=== PATIENT | female | born 1960 | race Caucasian/White ===

== ENCOUNTER 2020-05-23 16:49 | Observation (INO) | payer SELFPAY ==
[2020-05-23] VITALS (7 sets, daily range): BP systolic 134–190; BP diastolic 92–106; PULSE 89–106; RESP 14–22; TEMP 37.1–37.6; O2SAT 95–98; BMI 30.2
--- NOTE | 2020-05-23 17:11 | CTR_ITS ---
PROCEDURE INFORMATION: Exam: CT Angiography Head With Contrast Exam date and time: 05/23/2020 5:28 PM Age: 59 years old Clinical indication: Visual disturbance; Type not specified; Patient HX: PT states she woke up this am with vision changes; Additional info: Wake up stroke TECHNIQUE: Imaging protocol: Computed tomography angiography of the head with intravenous contrast. 3D rendering: MIP and/or 3D reconstructed images were created by the technologist. Radiation optimization: All CT scans at this facility use at least one of these dose optimization techniques: automated exposure control; mA and/or kV adjustment per patient size (includes targeted exams where dose is matched to clinical indication); or iterative reconstruction. Contrast material: OMNIPAQUE 350; Contrast volume: 95 ml; Contrast route: INTRAVENOUS (IV); COMPARISON: CT head wo con* [id number] 05/23/2020 5:28 PM RADIATION DOSE METRICS: Total DLP (mGy-cm): 2334.28 FINDINGS: Anterior cerebral arteries: No occlusion or significant stenosis. No aneurysm. Right internal carotid artery: Intracranial segment is patent with no significant stenosis or occlusion. No aneurysm. Right middle cerebral artery: No occlusion or significant stenosis. No aneurysm. Right posterior cerebral artery: No occlusion or significant stenosis. No aneurysm. Right vertebral artery: No occlusion or significant stenosis. No aneurysm. Left internal carotid artery: Intracranial segment is patent with no significant stenosis or occlusion. No aneurysm. Left middle cerebral artery: No occlusion or significant stenosis. No aneurysm. Left posterior cerebral artery: No occlusion or significant stenosis. No aneurysm. Left vertebral artery: No occlusion or significant stenosis. No aneurysm. Basilar artery: No occlusion or significant stenosis. No aneurysm. HEAD: Sinuses: Evidence of mild chronic right maxillary sinusitis. IMPRESSION: No large vessel stenosis or occlusion. PROCEDURE INFORMATION: Exam: CT Angiography Neck With Contrast Exam date and time: 05/23/2020 5:28 PM Age: 59 years old Clinical indication: Visual disturbance; Type not specified; Patient HX: PT states she woke up this am with vision changes; Additional info: Wake up stroke TECHNIQUE: Imaging protocol: Computed tomography angiography of the neck with intravenous contrast. 3D rendering: MIP and/or 3D reconstructed images were created by the technologist. Radiation optimization: All CT scans at this facility use at least one of these dose optimization techniques: automated exposure control; mA and/or kV adjustment per patient size (includes targeted exams where dose is matched to clinical indication); or iterative reconstruction. Contrast material: OMNIPAQUE 350; Contrast volume: 95 ml; Contrast route: INTRAVENOUS (IV); COMPARISON: CT head wo con* [id number] 05/23/2020 5:28 PM RADIATION DOSE METRICS: Total DLP (mGy-cm): 857 FINDINGS: Right common carotid artery: No stenosis. No dissection or occlusion. Right internal carotid artery: No stenosis of the extracranial segment. No dissection or occlusion. Right external carotid artery: No occlusion or stenosis of the origin. Right vertebral artery: No stenosis. No dissection or occlusion. Left common carotid artery: No stenosis. No dissection or occlusion. Left internal carotid artery: No stenosis of the extracranial segment. No dissection or occlusion. Left external carotid artery: No occlusion or stenosis of the origin. Left vertebral artery: No stenosis. No dissection or occlusion. Bones/joints: No acute fracture. Degenerative disease and degenerative disc disease C5/C6 and C6/C7 and to a less significant degree C3/C4. Soft tissues: Normal. No significant soft tissue swelling. CT/CT angio headneck* [id number] IMPRESSION: No stenosis or occlusion. REFERENCES: NASCET CRITERIA. The degree of internal carotid artery stenosis is based on NASCET criteria. Normal is no stenosis. Mild is less than 50% stenosis. Moderate is 50-69% stenosis. Severe is 70% to 99% stenosis. Total occlusion is no detectable patent lumen. Radiation Dose CTDIVOL = (mGy): DLP = 2334.28~857 (mGy-cm)
--- NOTE | 2020-05-23 17:11 | XRR_ITS ---
PROCEDURE INFORMATION: Exam: XR Chest, 1 View Exam date and time: 05/23/2020 5:27 PM Age: 59 years old Clinical indication: Other: CVA TECHNIQUE: Imaging protocol: XR of the chest Views: 1 view. COMPARISON: No relevant prior studies available. FINDINGS: Lungs: Unremarkable. No consolidation. Pleural space: Unremarkable. No pleural effusion. No pneumothorax. Heart/Mediastinum: Unremarkable. No cardiomegaly. Bones/joints: Unremarkable. Calcific tendinosis right shoulder. XR/XR chest 1V portable [id number] IMPRESSION: No acute findings.
--- NOTE | 2020-05-23 17:12 | ECG_ITS ---
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 Measurements Intervals [place] Rate: 76 P: 61 KS: 144 QRS: 30 QRSD: 92 T: 49 QT: 360 QTc: 405 Interpretive Statements SINUS RHYTHM WITH SINUS ARRHYTHMIA No previous ECG available for comparison Electronically Signed On 05-24-2020 16:25:36 CDT by Nima Tolentino M.D. [id number]
--- NOTE | 2020-05-23 17:12 | CTR_ITS ---
PROCEDURE INFORMATION: Exam: CT Head Without Contrast Exam date and time: 05/23/2020 5:28 PM Age: 59 years old Clinical indication: Visual disturbance; Patient HX: PT states she woke up this am with vision changes; Additional info: Symptoms of acute stroke TECHNIQUE: Imaging protocol: Computed tomography of the head without contrast. Radiation optimization: All CT scans at this facility use at least one of these dose optimization techniques: automated exposure control; mA and/or kV adjustment per patient size (includes targeted exams where dose is matched to clinical indication); or iterative reconstruction. COMPARISON: No relevant prior studies available. RADIATION DOSE METRICS: Total DLP (mGy-cm): 711.05 FINDINGS: Brain: Small focus of parafalcine hypoattenuation posterior left parietal lobe with focal atrophic changes. Potential side of an old lacunar insult. No visible acute intracranial pathologic process or hemorrhage. No visible evidence of acute or subacute infarction/ischemic event. Ventricles: Normal. No ventriculomegaly. Bones/joints: Unremarkable. No acute fracture. Sinuses: Evidence of mild chronic right maxillary sinusitis. Mastoid air cells: Visualized mastoid air cells are well aerated. Soft tissues: Unremarkable. CT/CT head wo con* [id number] IMPRESSION: 1. No visible evidence of acute intracranial pathologic process or hemorrhage. 2. Small focus of parafalcine hypoattenuation posterior left parietal lobe with focal atrophic changes. Potential side of an old lacunar insult. Radiation Dose CTDIVOL = (mGy): DLP = 711.05 (mGy-cm)
--- NOTE | 2020-05-23 17:17 | ED_ITS ---
HPI - Headache General: Chief Complaint: Headache Stated Complaint: HEADACHE Time Seen by Provider: 05/23/20 17:12 Source: patient Mode of arrival: ambulatory Limitations: no limitations History of Present Illness: HPI Narrative: Gardenia is a 59-year-old female comes in to the emergency department complaining of headache and having no vision. She states she went to bed last night in her normal state of health about 11 PM. Upon awakening and 7 AM she has been unable to see and she has a headache. Her headache has been getting gradually better as the day went on but her inability to see has persisted. She states that outside she can make out shadows and faint images but other than that she cannot make out anything. When she closes one eye at a time it does not change her symptoms. She denies having anything similar to this in the past. She is unaware of anything that makes her symptoms better or worse. Patient denies any other symptoms such as lateralizing weakn ess or difficulty speaking. Stroke alert has been called from triage. The patient is a wake-up stroke but is still a candidate for intervention if necessary. Associated symptoms: Deny chest pain, confusion, diaphoresis, fever(s), lightheadedness, malaise, nausea, pre-syncope, rash, syncope or vomiting Review of Systems Const: Denies: fever(s), chills, body aches, fatigue, malaise or diaphoresis Eyes: Reports: change in vision (See HPI); Denies: photophobia, eye discharge or eye redness ENMT: Denies: throat pain, odynophagia, hoarseness, swelling of lips/tongue, oral sores, ear or mastoid pain, ear discharge, change in hearing or nasal discharge Card: Denies: chest pain, palpitations, irregular heart rhythm, edema, lightheadedness, syncope, pre-syncope, dyspnea on exertion or orthopnea Resp: Denies: dyspnea, productive cough, non-productive cough, wheezing, hemoptysis or chest congestion GI: Denies: abdominal pain, nausea, vomiting, hematemesis, coffee ground emesis, heartburn, diarrhea, constipation, GI cramping, hematochezia or melena : Denies: flank pain, dysuria, urinary frequency, urinary urgency or hematuria Musc: Denies: neck pain, back pain, extremity pain, extremity swelling, joint pain, joint swelling, joint redness, joint warmth or joint stiffness Skin/Breast: Denies: rash, pruritus, erythema, skin tenderness or jaundice Neuro: Denies: headache(s), numbness in extremities, weakness in extremities, sensory changes, lack of coordination, difficulty walking, dizziness, vertigo, confusion, Slurred speech present or seizure-like activity Nick/Lymph: Denies: easy bruising, easy bleeding, petechiae, purpura or enlarged lymph nodes All/Imm: Denies: urticaria, throat swelling, tongue swelling, facial swelling or acute wheezing PFSH ED PFSH: Medical History No pertinent past medical history Surgical History S/P laparotomy Physical Exam Const: COMMON NORMALS: no acute distress, patient oriented x3, no limitations, healthy appearing and well nourished GENERAL APPEARANCE: cooperative, well kempt and well developed HENMT: COMMON NORMALS: normocephalic, atraumatic, external ears normal, EAC's normal and Normal external nose present HEAD & SCALP: normal to inspection, normocephalic and atraumatic FACE & SINUS: normal facial exam and face symmetric NOSE: Normal external nose present and Normal nares present EXTERNAL EAR: Yes external ears normal EXTERNAL AUDITORY CANAL: EAC's normal MOUTH: Normal oral and palatal mucosa present, lip normal and tongue normal Neck/C-Spine: COMMON NORMALS: full ROM, no lymphadenopathy, supple, no meningeal signs and no JVD GENERAL: Yes normal visual inspection and Yes trachea midline Chest: COMMONS NORMALS: normal inspection of the chest and normal palpation of entire chest wall Resp: COMMON NORMALS: normal respiratory effort, No retractions and No use of accessory muscles EFFORT & INSPECTION: Yes able to speak in complete sentences and Yes symmetric chest movement AUSCULTATION: no crackles, no rales, no rhonchi and no wheezes Cardio: COMMON NORMALS: no JVD, regular rate, regular rhythm, S1 normal heart sound present and S2 normal heart sound present RATE: regular rate RHYTHM: regular rhythm HEART SOUNDS: S1 normal heart sound present, S2 normal heart sound present, no click, no gallops, no murmurs, no rubs and abnormal split S2 GI: COMMON NORMALS: Soft to palpation and No hepatosplenomegaly present PALPATION: Yes Soft to palpation, No Tenderness to palpation present (GI), No Guarding due to palpation present (GI), No Rigid due to palpation, Yes No hepatosplenomegaly present, No Hernia present, No Palpable mass present and No Pulsatile mass present : COMMON NORMALS: Yes no CVA tenderness BLADDER/KIDNEY EXAM: Yes no CVA tenderness EXTERNAL FEMALE EXAM: No Hernia present Back/Pelvis: COMMON NORMALS: no CVA tenderness, thoracic and lumbar spine normal to inspection, no thoracic nor lumbar tenderness and thoraco-lumbar ROM normal Extremity: COMMON NORMALS: normal to inspection, full ROM, capillary refill normal, no joint enlargement, no clubbing, cyanosis or edema and no calf tenderness Neuro: COMMON NORMALS: patient oriented x3 MENINGEAL SIGNS: Yes no meningeal signs Psych: APPEARANCE: Yes well kempt Skin: COMMON NORMALS: no rashes or lesions noted, turgor normal, no jaundice, no petechiae and no mottling GENERAL SKIN EXAM: no rashes or lesions noted and turgor normal Course ED course: 1714 -stroke alert was called and Dr. Amaral called and discussed the case with me. She agrees the patient is not a TPA candidate as she went to bed last night at 11 PM and woke up with her symptoms at 7 AM. She recommends a CTA why the patient is in CAT scan to look for any intervening bone lesion. Patient agrees with this denies any history of kidney disease. 1829 -the case, CT results and NIH stroke scale were reviewed with Dr. Amaral. She believes the patient's NIH stroke scale is likely 0. The patient is not an interventional candidate, she agrees admit the patient for MRI, sed rate testing Vital Signs: Vital signs: Vital Signs Temperature 98.7 F 05/23/20 17:03 Pulse Rate 90 05/23/20 18:03 Respiratory Rate 18 05/23/20 18:03 Blood Pressure 188/102 05/23/20 18:03 Pulse Oximetry 96 05/23/20 18:03 MDM - Headache MDM Narrative: Medical decision making narrative: Patient still states she can only make out light and dark motions and shapes. She seems indifferent to her vision loss. The Reglan and Benadryl that I have given her she states this made her headache worse. She has no fever, no neck pain or stiffness. I have reviewed the case in full again with Dr. Amaral who recommends admission for MRI and sed rate and CRP testing. I will place this and I have reviewed the case in full with Dr. Marti, he agrees to admit for further evaluation and care. Lab Data: Attestation: I reviewed the patient's lab results. Labs: Lab Results 05/23/20 05/23/20 05/23/20 Range/Units 17:15 17:20 17:20 WBC 14.9 H (4.0-10.0) 10^3/ uL RBC 5.60 H (4.1-5.3) 10^6/u L Hgb 16.5 H (11.5-15.3) g/dL Hct 49.5 H (37.0-47.0) % MCV 88.4 (81-99) fL MCH 29.5 (28.0-34.0) pg MCHC 33.3 (30.0-36.0) g/dL RDW 12.5 (12.1-15.1) % Plt Count 331 (130-400) 10^3/c mm MPV 10.6 H (7.4-10.4) fL Neut % (Auto) 78.8 % Lymph % (Auto) 14.0 % Charles % (Auto) 6.1 % Eos % (Auto) 0.1 % Baso % (Auto) 0.7 % Neut # (Auto) 11.77 H (1.8-7.7) 10^3/u L Lymph # (Auto) 2.1 (0.8-4.8) 10^3/u L Charles # (Auto) 0.9 (0.2-0.9) 10^3/u L Eos # (Auto) 0.0 (0.0-0.8) 10^3/u L Baso # (Auto) 0.1 (0.0-0.1) 10^3/u L Nucleated RBC % (a uto) 0 % Nucleated RBCs # 0.0 /100WBC ESR (0-15) mm/hr PT 12.80 (10.5-13.3) SECO NDS INR 0.93 (0.8-1.2) APTT 31.8 (23.9-36.7) SECO NDS Sodium (136-145) mmol/L Potassium (3.5-5.1) mmol/L Chloride (98-107) mmol/L Carbon Dioxide (22-29) mmol/L Anion Gap (5-19) BUN (6-20) mg/dL Creatinine (0.5-0.9) mg/dL GFR Calculation (90-130) mL/min Glucose (65-115) mg/dL POC Glucose 132 (70-110) mg/dL Calculated Osmolal ity (285-295) mOsm/k g Calcium (8.5-10.5) mg/dL Total Bilirubin (0.15-1.2) mg/dL AST (0-32) U/L ALT (0-33) U/L Alkaline Phosphata se (35-105) IU/L C-Reactive Protein (0.0-4.9) mg/L Total Protein (6.6-8.7) g/dL Albumin (3.5-5.2) g/dL Globulin (1.3-4.6) g/dL 05/23/20 05/23/20 05/23/20 Range/Units 17:20 17:20 17:20 WBC (4.0-10.0) 10^3/ uL RBC (4.1-5.3) 10^6/u L Hgb (11.5-15.3) g/dL Hct (37.0-47.0) % MCV (81-99) fL MCH (28.0-34.0) pg MCHC (30.0-36.0) g/dL RDW (12.1-15.1) % Plt Count (130-400) 10^3/c mm MPV (7.4-10.4) fL Neut % (Auto) % Lymph % (Auto) % Charles % (Auto) % Eos % (Auto) % Baso % (Auto) % Neut # (Auto) (1.8-7.7) 10^3/u L Lymph # (Auto) (0.8-4.8) 10^3/u L Charles # (Auto) (0.2-0.9) 10^3/u L Eos # (Auto) (0.0-0.8) 10^3/u L Baso # (Auto) (0.0-0.1) 10^3/u L Nucleated RBC % (a uto) % Nucleated RBCs # /100WBC ESR 27 H (0-15) mm/hr PT (10.5-13.3) SECO NDS INR (0.8-1.2) APTT (23.9-36.7) SECO NDS Sodium 141 (136-145) mmol/L Potassium 3.1 L (3.5-5.1) mmol/L Chloride 101 (98-107) mmol/L Carbon Dioxide 23 (22-29) mmol/L Anion Gap 20.1 H (5-19) BUN 15 (6-20) mg/dL Creatinine 0.9 (0.5-0.9) mg/dL GFR Calculation 64.5 L (90-130) mL/min Glucose 139 H (65-115) mg/dL POC Glucose (70-110) mg/dL Calculated Osmolal ity 291 (285-295) mOsm/k g Calcium 9.5 (8.5-10.5) mg/dL Total Bilirubin 0.4 (0.15-1.2) mg/dL AST 17 (0-32) U/L ALT 23 (0-33) U/L Alkaline Phosphata se 142 H (35-105) IU/L C-Reactive Protein 7.9 H (0.0-4.9) mg/L Total Protein 9.1 H (6.6-8.7) g/dL Albumin 4.8 (3.5-5.2) g/dL Globulin 4.3 (1.3-4.6) g/dL Imaging Data^: CXR: My impression: No acute cardiopulmonary findings. CTA Head and Neck: Radiologist's impression: [place] [address] CT Scan Report Signed Patient: Kelli Irving Unit #: [id number] : 1960 Age/Sex: 59 / F ADM Date: 05/23/20 Loc: ER Room/Bed: Attending Dr: Ordering Provider/Ordering MD: Eloy Zaidi DO Date of Service: 05/23/20 Procedure(s): CT angio headneck* [id number] Accession Number(s): [id number] Report Number: [id number] PROCEDURE INFORMATION: Exam: CT Angiography Head With Contrast Exam date and time: 05/23/2020 5:28 PM Age: 59 years old Clinical indication: Visual disturbance; Type not specified; Patient HX: PT states she woke up this am with vision changes; Additional info: Wake up stroke TECHNIQUE: Imaging protocol: Computed tomography angiography of the head with intravenous contrast. 3D rendering: MIP and/or 3D reconstructed images were created by the technologist. Radiation optimization: All CT scans at this facility use at least one of these dose optimization techniques: automated exposure control; mA and/or kV adjustment per patient size (includes targeted exams where dose is matched to clinical indication); or iterative reconstruction. Contrast material: OMNIPAQUE 350; Contrast volume: 95 ml; Contrast route: INTRAVENOUS (IV); COMPARISON: CT head wo con* [id number] 05/23/2020 5:28 PM RADIATION DOSE METRICS: Total DLP (mGy-cm): 2334.28 FINDINGS: Anterior cerebral arteries: No occlusion or significant stenosis. No aneurysm. Right internal carotid artery: Intracranial segment is patent with no significant stenosis or occlusion. No aneurysm. Right middle cerebral artery: No occlusion or significant stenosis. No aneurysm. Right posterior cerebral artery: No occlusion or significant stenosis. No aneurysm. Right vertebral artery: No occlusion or significant stenosis. No aneurysm. Left internal carotid artery: Intracranial segment is patent with no significant stenosis or occlusion. No aneurysm. Left middle cerebral artery: No occlusion or significant stenosis. No aneurysm. Left posterior cerebral artery: No occlusion or significant stenosis. No aneurysm. Left vertebral artery: No occlusion or significant stenosis. No aneurysm. Basilar artery: No occlusion or significant stenosis. No aneurysm. HEAD: Sinuses: Evidence of mild chronic right maxillary sinusitis. IMPRESSION: No large vessel stenosis or occlusion. PROCEDURE INFORMATION: Exam: CT Angiography Neck With Contrast Exam date and time: 05/23/2020 5:28 PM Age: 59 years old Clinical indication: Visual disturbance; Type not specified; Patient HX: PT states she woke up this am with vision changes; Additional info: Wake up stroke TECHNIQUE: Imaging protocol: Computed tomography angiography of the neck with intravenous contrast. 3D rendering: MIP and/or 3D reconstructed images were created by the technologist. Radiation optimization: All CT scans at this facility use at least one of these dose optimization techniques: automated exposure control; mA and/or kV adjustment per patient size (includes targeted exams where dose is matched to clinical indication); or iterative reconstruction. Contrast material: OMNIPAQUE 350; Contrast volume: 95 ml; Contrast route: INTRAVENOUS (IV); COMPARISON: CT head wo con* [id number] 05/23/2020 5:28 PM RADIATION DOSE METRICS: Total DLP (mGy-cm): 857 FINDINGS: Right common carotid artery: No stenosis. No dissection or occlusion. Right internal carotid artery: No stenosis of the extracranial segment. No dissection or occlusion. Right external carotid artery: No occlusion or stenosis of the origin. Right vertebral artery: No stenosis. No dissection or occlusion. Left common carotid artery: No stenosis. No dissection or occlusion. Left internal carotid artery: No stenosis of the extracranial segment. No dissection or occlusion. Left external carotid artery: No occlusion or stenosis of the origin. Left vertebral artery: No stenosis. No dissection or occlusion. Bones/joints: No acute fracture. Degenerative disease and degenerative disc disease C5/C6 and C6/C7 and to a less significant degree C3/C4. Soft tissues: Normal. No significant soft tissue swelling. CT/CT angio headneck* [id number] IMPRESSION: No stenosis or occlusion. REFERENCES: NASCET CRITERIA. The degree of internal carotid artery stenosis is based on NASCET criteria. Normal is no stenosis. Mild is less than 50% stenosis. Moderate is 50-69% stenosis. Severe is 70% to 99% stenosis. Total occlusion is no detectable patent lumen. Radiation Dose CTDIVOL = (mGy): DLP = 2334.28 857 (mGy-cm) Dictated By: Lowell Mendoza Signed By: Lowell Mendoza Signed Date/Time: 05/23/201804 DD/ 03 EKG Data^: EKG 1: Attestation: I personally reviewed and interpreted this EKG as follows: EKG interpretation date: 05/23/20 EKG interpretation time: 17:57 Interpretation: Normal sinus rhythm at 76 beats a minute, nonspecific ST and T wave changes. No blocks, normal intervals. 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
[2020-05-23 17:20] LABS: Glucose Point of Care 132 mg/dL (70-110)
[2020-05-23 17:31] LABS: Basophils # 0.1 10^3/uL (0.0-0.1); Basophils % 0.7 %; Eosinophils % 0.1 %; Hematocrit 49.5 % (37.0-47.0); Hemoglobin 16.5 g/dL (11.5-15.3); Lymphocytes # 2.1 10^3/uL (0.8-4.8); Mean Corpuscular HGB Conc 33.3 g/dL (30.0-36.0); Mean Corpuscular Hemoglobin 29.5 pg (28.0-34.0); Mean Corpuscular Volume 88.4 fL (81-99); Mean Platelet Volume 10.6 fL (7.4-10.4); Monocytes # 0.9 10^3/uL (0.2-0.9); Monocytes % 6.1 %; Neutrophils # 11.77 10^3/uL (1.8-7.7); Neutrophils % 78.8 %; Nucleated Red Blood Cells % 0 %; Platelet Count 331 10^3/cmm (130-400); Red Cell Distribution Width 12.5 % (12.1-15.1); White Blood Count 14.9 10^3/uL (4.0-10.0)
[2020-05-23] MEDS: iohexol 350 mg/mL 100 mL Btl IV (17:41)
[2020-05-23 17:43] LABS: INR 0.93 (0.8-1.2)
[2020-05-23 17:44] LABS: Partial Thromboplastin Time 31.8 SECONDS (23.9-36.7)
[2020-05-23 18:09] LABS: Alanine Aminotransferase 23 U/L (0-33); Albumin Level 4.8 g/dL (3.5-5.2); Alkaline Phosphatase 142 IU/L (35-105); Anion Gap 20.1 (5-19); Aspartate Amino Transferase 17 U/L (0-32); Blood Urea Nitrogen 15 mg/dL (6-20); Calcium 9.5 mg/dL (8.5-10.5); Carbon Dioxide 23 mmol/L (22-29); Chloride 101 mmol/L (98-107); Globulin 4.3 g/dL (1.3-4.6); Glomerular Filtration Rate 64.5 mL/min (90-130); Glucose 139 mg/dL (65-115); Osmolality Calculated 291 mOsm/kg (285-295); Potassium 3.1 mmol/L (3.5-5.1); Sodium 141 mmol/L (136-145); Total Bilirubin 0.4 mg/dL (0.15-1.2); Total Protein 9.1 g/dL (6.6-8.7)
[2020-05-23 18:48] LABS: C Reactive Protein 7.9 mg/L (0.0-4.9)
[2020-05-23] MEDS: aspirin 325 mg Tablet PO (19:00)
[2020-05-23] MEDS: diphenhydrAMINE 50 mg/mL SDV 1mL 25 MG IVP (19:00)
[2020-05-23] MEDS: metoclopramide 5 mg/mL SDV 2 mL 10 MG IVP (19:00)
[2020-05-23 19:30] LABS: Erythrocyte Sedimentation Rate 27 mm/hr (0-15)
--- NOTE | 2020-05-23 19:32 | PM.HP ---
Providers/Chief Complaint Chief Complaint: HEADACHE History of Present Illness Kelli Irving is a 59 year old female who does not carry significant past medical history came in today for headache and vision change. 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 She was in her usual state of health until this morning when she started experiencing throbbing headache around 7 AM which woke her up from her sleep, she has never experienced this kind of headache before, she described this headache as throbbing in nature and frontal part of her head without any nausea, vomiting, runny nose or rhinorrhea. This headache was getting worse on coughing, she is endorsing night sweats and weight loss. She is attributing her weight loss to not eating well. She is attributing her night sweats to her postmenopausal state. She has not noticed any muscle aches, myalgias, or difficulty in combing her hair or climbing stairs. She is totally independent and has been taking care of her for last 7 years. Her headache was associated with vision change which she is describing as everything is blurry . She did not notice any black curtain falling in her visual field, denies redness of her eyes, seeing flashes/floaters, photophobia, phonophobia, previous history of glaucoma or cataracts. Her symptoms persisted until 3 PM when her daughter insisted her to go to the hospital for further evaluation. Patient is denying screening colonoscopy, mammograms, regular follow-up with PCP. Diagnosis in the ER revealed hypertension systolic blood pressure 188, diastolic 102 NIH score [address] Cristin Amaral requested CTA head and neck EKG was sinus rhythm Patient was given potassium supplementation, Reglan, high-dose aspirin At the time of my evaluation NIH 3 for bilateral limited vision without motor deficit or facial asymmetry Patient is not wearing her eyeglasses No cerebellar signs, no pupillary deficit/asymmetry No temporal tenderness Patient is not a TPA candidate because of her delayed presentation to the hospital, no occlusion found on CTA head and neck Review of Systems Const: Reports: change in weight; Denies: fever(s), chills, body aches or fatigue Eyes: Reports: change in vision and blurry vision; Denies: blind spots, photophobia, eye discharge, eye redness, dry eyes or seeing flashes ENMT: Denies: throat pain Card: Denies: chest pain Resp: Denies: dyspnea GI: Denies: abdominal pain, nausea or vomiting : Denies: flank pain, difficulty voiding or urinary frequency Musc: Denies: neck pain Skin/Breast: Denies: rash Neuro: Denies: headache(s), frequent falls, vertigo, confusion or Slurred speech present Psych: Denies: depression or visual hallucinations Endo: Denies: polyuria Nick/Lymph: Denies: easy bruising All/Imm: Denies: urticaria Medications/Allergies Home Medications Medication Instructions Recorded Confirmed Last Taken Type Golo Caps 4 cap PO DAILY 05/23/20 05/23/20 05/21/20 History ibuprofen 400 mg PO PRN 05/23/20 05/23/20 05/23/20 History Allergies Allergy/AdvReac Type Severity Reaction Status Date / Time No Known Allergies Allergy Verified 05/23/20 17:56 PFSH Acute PFSH: Medical History (Updated 05/23/20 @ 20:23 by Lupe Marti MD) Hypertension No pertinent past medical history Surgical History (Updated 05/23/20 @ 20:23 by Lupe Marti MD) S/P laparotomy For small bowel obstruction Patient is stating that she had twisted bowel Family History (Updated 05/23/20 @ 20:24 by Lupe Marti MD) Mother Dementia Father Dementia Social History (Updated 05/23/20 @ 20:24 by Lupe Marti MD) Smoking and tobacco status: heavy tobacco smoker cigarettes [ Other cigarette details: Half a pack a day since 2008 ] Alcohol intake: current Alcohol intake frequency: holidays/special occasions only Substance/Drug Use: never Household members: spouse Housing: House Vitals/I&O/Wt Last Vital Signs Temp 98.7 F 05/23/20 17:03 Pulse 90 05/23/20 18:03 Resp 18 05/23/20 18:03 BP 188/102 05/23/20 18:03 Pulse Ox 96 05/23/20 18:03 Weight last 48 hrs Weight 74.843 kg Physical Exam Narrative: EXAM NARRATIVE: Head to toe examination This is a middle-aged female who appears more than stated age Sitting comfortably in her bed No facial asymmetry Sensations intact No motor deficit No cerebellar signs No slurring of speech/dysarthria No temporal area tenderness No proximal muscle weakness She is able to track people outside the room, she is not wearing her glasses, her eye exam is very inconsistent, at distance of 2 feet she is able to tell color of my gloves, count fingers, able to demonstrate finger-nose test, but on repeat examination at similar distance she is not able to do the same. I have not examined any nystagmus, her pupils are symmetrical, PERRLA, EOMI. when I presented my hand to help her get up from supine to sitting position which I intentionally held more than 2 feet away from her she was able to locate my hand grab it and hold herself up. NIH 0-3(but not reliable) S1, S2 sinus rhythm no murmur appreciated, no carotid bruit Abdomen soft nontender distended with obesity Lungs are clear to auscultation on posterior lung auscultation Expressionless face, flat affect Skin does not show any sign of ischemia gangrene ulcer No signs of depression at this point Data : 05/23/20 17:20 05/23/20 17:20 EKG 1: I personally reviewed and interpreted this EKG as follows: My Interpretation: Normal sinus rhythm without QTC prolongation, normal intervals A&P Assessment and plan (1) Acute loss of vision: Status: Acute Qualifiers: Laterality: bilateral Qualified Code(s): H53.133 - Sudden visual loss, bilateral (2) Migraine equivalent syndrome: Status: Acute (3) Hypertension: Status: Acute (4) Hypokalemia: Status: Acute Additional A&P Information Headache with acute onset of blurry vision My differential would include TIA, occipital stroke, major vessel stroke, giant cell arteritis, glaucoma, cataract, Glaucoma, retinal vascular occlusion Considering her inconsistent physical exam and normal CTA head and neck, ESR 27, CRP 7 I would not start her on high-dose steroids for my concern of giant cell arteritis, however I would start her on high-dose atorvastatin along with dual antiplatelet therapy. Case has been discussed with Dr. Amaral who is also noticed convinced about organic cause of her vision changes. I will go ahead and give her sumatriptan to see if migraine has a role to play for her symptoms. I would get MRI in the morning as patient described night sweats, weight loss, worsening of headache on coughing. I would let her eat, I do not see any focal deficit, she is edentulous, will choose mechanical soft diet for now Physical therapy in the morning Her exam is not consistent with acute ocular emergencies such as glaucoma or keratitis, I have requested patient to do outpatient follow-up with embedded systems software developer. Polycythemia Most likely secondary to dehydration Currently added aspirin I highly doubt this to be the cause of her vision changes Monitor CBC in the morning Hypertension with proteinuria I would add lisinopril 10 mg for now and monitor her blood pressure Stage III hypertension she might need 2-3 antihypertensives before her discharge Hematuria Need repeat urinalysis before discharge to see the resolution otherwise she will need outpatient follow-up as she is a chronic smoker with history of weight loss and night sweats Hypokalemia: Repleted Patient is denying history of diarrhea or vomiting, I would obtain renin aldosterone levels She will need PCP appointment before discharge for close follow-up, she has not undergone mammogram or Pap screening colonoscopies Full code DVT prophylaxis low Mechanical soft diet(edentulous) Attestations Medical Necessity Statement*: Anticipating discharge in less than 48 hours currently need MRI for her vision changes She has persistent vision changes with headache, because lack of PCP follow-up she will need overnight monitoring in the hospital for her symptoms Time Spent in Patient Care: (>than 50% of time spent in counselling and/or direct pt care on unit). 60mins Coding Level of Care Code Acute Commercial Real Estate Attorney for Chg Fwd Diagnoses Acute loss of vision H53.133 Laterality: bilateral Migraine equivalent syndrome G43.109 Hypertension I10 Hypokalemia E87.6
[2020-05-23 19:50] LABS: Magnesium 1.9 mg/dL (1.7-2.3)
[2020-05-23 20:03] LABS: Estmated Average Glucose 111; Hemoglobin A1C 5.5 % (4.0-6.0)
[2020-05-23 20:31] LABS: Add Urine Microscopic? YES; Bilirubin Urine Neg (NEGATIVE); Blood Urine 2+ (Negative); Glucose Urine UA Norm (Normal); Ketones Urine Negative (Negative); Leukocyte Esterase Urine Negative (Negative); Nitrate Urine Negative (Negative); Protein Urine 1+ (Negative); Specific Gravity, Urine 1.005 (1.005-1.030); Urine Appearance Clear (CLEAR); Urine Color Yellow (Yellow); Urobilinogen Urine Neg (Negative); pH Urine 7 (5-7)
[2020-05-23 20:38] LABS: Add Urine Culture? Yes; Bacteria Urine 1+; Mucus Urine 2+; Squamous Epithelial Cell Urine 0-4 (0-5)
[2020-05-23 20:40] LABS: Amphetamines Screen Urine Negative (Negative); Barbiturates Screen Urine Negative (Negative); Benzodiazepines Screen Urine Negative (Negative); Cocaine Screen Urine Negative (Negative); Opiate Screen Urine Negative (Negative); PCP Screen Urine Negative (Negative); THC Screen Urine Negative (Negative)
[2020-05-23 20:50] LABS: Chol HDL Ratio 3.85 mg/dL (0.0-4.40); Cholesterol 204 mg/dL (0-200); HDL Cholesterol 53 mg/dL (60-100); LDL Cholesterol Calculated 116 mg/dL (50-129); LDL HDL Ratio 2.19 RATIO (0.00-3.22); Triglycerides 174 mg/dL (0-150)
[2020-05-23] MEDS: enoxaparin 40 mg/0.4 mL Syringe SUBCUT (22:25)
[2020-05-23] MEDS: SUMAtriptan 25 mg Tablet PO (22:25)
[2020-05-23] MEDS: potassium chloride ER 10 mEq Tablet 40 MEQ PO (22:25)
[2020-05-23] MEDS: hyDRALAzine 20 mg/mL INJ 1 mL 10 MG IVP (22:25)
[2020-05-24 04:00] VITALS: BP 184/98; PULSE 93; RESP 18; TEMP 37.6; O2SAT 100
[2020-05-24 05:24] LABS: Basophils # 0.1 10^3/uL (0.0-0.1); Basophils % 0.6 %; Eosinophils % 0.1 %; Hematocrit 46.6 % (37.0-47.0); Hemoglobin 15.7 g/dL (11.5-15.3); Lymphocytes # 2.1 10^3/uL (0.8-4.8); Lymphocytes % 17.7 %; Mean Corpuscular HGB Conc 33.7 g/dL (30.0-36.0); Mean Corpuscular Hemoglobin 30.8 pg (28.0-34.0); Mean Corpuscular Volume 91.6 fL (81-99); Mean Platelet Volume 10.5 fL (7.4-10.4); Monocytes # 0.7 10^3/uL (0.2-0.9); Monocytes % 5.8 %; Neutrophils # 9.09 10^3/uL (1.8-7.7); Neutrophils % 75.4 %; Nucleated Red Blood Cells % 0 %; Platelet Count 273 10^3/cmm (130-400); Red Blood Count 5.09 10^6/uL (4.1-5.3); Red Cell Distribution Width 12.7 % (12.1-15.1); White Blood Count 12.1 10^3/uL (4.0-10.0)
[2020-05-24] MEDS: lisinopril 10 mg Tablet PO ×2 (06:16→09:20)
[2020-05-24 07:14] LABS: Anion Gap 16.2 (5-19); Blood Urea Nitrogen 17 mg/dL (6-20); Calcium 9.4 mg/dL (8.5-10.5); Carbon Dioxide 25 mmol/L (22-29); Chloride 101 mmol/L (98-107); Creatinine Clr Calc Pharmacy 83.9842; Glomerular Filtration Rate 86.2 mL/min (90-130); Glucose 119 mg/dL (65-115); Osmolality Calculated 286 mOsm/kg (285-295); Potassium 3.2 mmol/L (3.5-5.1); Sodium 139 mmol/L (136-145)
[2020-05-24 07:37] VITALS: BP 165/86; PULSE 89; RESP 20; TEMP 37.2; O2SAT 93
[2020-05-24] MEDS: clopidogrel 75 mg Tablet PO (09:20)
[2020-05-24] MEDS: aspirin 81 mg EC Tablet PO (09:20)
[2020-05-24] MEDS: atorvastatin 40 mg Tablet 80 MG PO (09:20)
--- NOTE | 2020-05-24 11:03 | PC.CHAP ---
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 inspector helper visit [] Patient/Family/Request visit [] Outpatient visit [] Follow-up visit [] Physician referral [] Code/Alert [] Routine visit [] Staff referral [] Actively dying [] Patient sleeping [] Family support [] [] Out of room [] Palliative care [] [] Receiving care in room [] Pre-surgical visit [] Trauma [] Long length of stay [] ICU visit [x] Other: In tests for MRI Relational/Emotional Strength [] Patient feels connected with others/family/visitors/staff [] Distress [] Loneliness/isolation [] Abandonment Spirituality of Patient [] Person of Anais [] Attends Rastafarian of their Anais [] Believes in Prayer [] Reads Bible or Advent materials [] There are Spiritual issues to be addressed Rock Room Worker Interventions [] Prayer [] Active listening [] Non-anxious presence [] Spiritual/emotional support [] Crisis/trauma care [] Spiritual counseling [] Bereavement support [] Provided bereavement packet [] Provided Bible/devotional materials [] Provided toy/stuffed animal, coloring book to patient or family member [] Provided Communion [] Anointing/[place] [] Salvation [] Completed spiritual assessment [] Other: Impact on Illness or Injury [] Angry [] Fearful [] Anxious [] Often cries [] Exhaustion [] Unable to work [] Unable to attend restorationism [] Unable to walk/stand [] Unable to read [] Unable to drive [] Unable to eat/drink [] Unable to sleep [] Unable to be with family [] Patient intubated [] Other: Summary In tests for MRI Time spent with patient 5 mins
[2020-05-24 12:00] VITALS: BP 128/81; PULSE 90; RESP 20; TEMP 36.7; O2SAT 96
[2020-05-24 15:42] VITALS: BP 123/78; PULSE 90; RESP 20; TEMP 36.8; O2SAT 95
--- NOTE | 2020-05-24 16:48 | PM.PN ---
Subjective Subjective: Interval history: Chart reviewed, MRI findings discussed with Dr. Carpio, suggestive of PRES. initially was quite hypertensive, blood pressure has improved. Noted mild hypokalemia, will replace. Patient seen and examined, resting quietly in bed, reports that her headache has essentially completely resolved. Vision is blurry though she attributes this to not having her glasses on. Medications: Reviewed: Yes Medication Review Details: Active Medications Generic Name Dose Route Start Last Admin Trade Name Freq PRN Reason Stop Dose Admin Aspirin 81 mg 05/24/20 09:00 05/24/20 09:20 Aspirin Ec PO 81 mg DAILY AR Administration Atorvastatin Calci um 80 mg 05/24/20 09:00 05/24/20 09:20 Lipitor PO 80 mg DAILY AR Administration Clopidogrel Bisulf ate 75 mg 05/24/20 09:00 05/24/20 09:20 Plavix PO 75 mg DAILY AR Administration Enoxaparin Sodium 40 mg 05/23/20 21:35 05/23/20 22:25 Lovenox SUBCUT 40 mg Q24H AR Administration Lisinopril 10 mg 05/24/20 05:50 05/24/20 09:20 Prinivil PO 10 mg DAILY AR Administration No Known Allergies Allergy (Verified 05/23/20 17:56) Vitals/I&O/Wt Last Vital Signs Temp 98.2 F 05/24/20 15:42 Pulse 90 05/24/20 15:42 Resp 20 H 05/24/20 15:42 BP 123/78 05/24/20 15:42 Pulse Ox 95 05/24/20 15:42 05/24/20 05/24/20 05/24/20 06:59 14:59 22:59 Intake Total 600 / 600 Output Total 400 / 400 Balance 200 / 200 Weight last 48 hrs Weight 74.843 kg Physical Exam Const: COMMON NORMALS: no acute distress and patient oriented x3 GENERAL APPEARANCE: cooperative and comfortable ORIENTATION/CONSCIOUSNESS: Yes awake HENMT: COMMON NORMALS: normocephalic, atraumatic, hearing grossly normal bilaterally and moist oral mucous membranes HEAD & SCALP: normocephalic and atraumatic TEETH & GINGIVA: Yes edentulous Eye: COMMON NORMALS: Equal, round and reactive pupils present, EOMs intact bilaterally and conjunctivae normal CONJUNCTIVA: Yes conjunctivae normal PUPIL: Yes Equal, round and reactive pupils present Neck/C-Spine: COMMON NORMALS: full ROM GENERAL: Yes normal visual inspection and Yes trachea midline Resp: COMMON NORMALS: normal respiratory effort, No retractions, No use of accessory muscles and clear to auscultation bilaterally EFFORT & INSPECTION: Yes able to speak in complete sentences, Yes symmetric chest movement and No tachypneic AUSCULTATION: clear to auscultation bilaterally Cardio: COMMON NORMALS: regular rate, regular rhythm, S1 normal heart sound present, S2 normal heart sound present and No murmurs present (Cardio) RATE: regular rate RHYTHM: regular rhythm HEART SOUNDS: S1 normal heart sound present and S2 normal heart sound present GI: COMMON NORMALS: Normal to inspection, nondistended, normoactive bowel sounds present, Soft to palpation and non-tender PALPATION: Yes Soft to palpation Extremity: COMMON NORMALS: normal to inspection, full ROM and no clubbing, cyanosis or edema; negative for no pedal edema Neuro: COMMON NORMALS: patient oriented x3, moves all extremities, no focal motor deficits, no sensory deficits noted and gait normal Psych: COMMON NORMALS: mental status grossly normal, Normal thought process present, cooperative, normal affect and speech normal SPEECH: Yes normal speech THOUGHT PROCESS: Normal thought process present Skin: COMMON NORMALS: no rashes or lesions noted, no jaundice, no petechiae and no mottling GENERAL SKIN EXAM: no rashes or lesions noted Data : 05/24/20 04:42 05/24/20 06:51 A&P Assessment and plan (1) Hypertension: -No prior reported history of hypertension, presented with hypertensive urgency, symptomatic with noted headache, blurry vision -Blood pressure has improved with addition of antihypertensives -Continue to monitor blood pressure closely -Noted to have signal abnormalities predominantly within the parieto-occipital lobes bilaterally and to a lesser extent to the posterior frontal lobes favoring posterior reversible encephalopathy syndrome. This clinically fits the picture of noted hypertensive urgency Status: Acute Qualifiers: Hypertension type: essential hypertension Qualified Code(s): I10 - Essential (primary) hypertension (2) PRES (posterior reversible encephalopathy syndrome): -As noted above Status: Acute (3) Hypokalemia: -Replace as needed Status: Acute (4) Headache: -Likely secondary to symptomatic hypertensive urgency as noted above -Pain control, antiemetics as needed -Noted imaging findings including CT head showing small focus of parafalcine hypoattenuation in the posterior left parietal lobe with focal atrophic changes and MRI showing findings consistent with PRES -CTA head and neck was unremarkable for any significant stenosis or occlusion -No focal neurological deficits; initial NIH score of [address] Amaral -Urine drug screen negative -UA showing some hematuria and bacteria Status: Acute Qualifiers: Headache chronicity pattern: acute headache Headache type: unspecified Intractability: intractable Qualified Code(s): R51 - Headache Additional A&P Information -Chronic smoker: Smokes half a pack a day -Dyslipidemia per lipid panel, continue statin -Polycythemia likely secondary to dehydration, improved -Leukocytosis which I suspect is reactive, improving without treatment -Obesity: BMI-30 kg/m2 -mechanical soft diet as tolerated -DVT ppx with Lovenox -Dispo: home -Code status: FULL code Attestations Medical Necessity Statement*: Patient requires hospitalization for continued management of PRES requiring continued monitoring of hemodynamic status and blood pressure control. Time Spent in Patient Care: Greater than 35 minutes (>than 50% of time spent in counselling and/or direct pt care on unit). Coding Level of Care Code Acute Vice President Of Customer Service for g Fwd Exam Comprehensive Diagnoses Hypertension I10 Hypertension type: essential hypertension PRES (posterior reversible encephalopathy syndrome) I67.83 Hypokalemia E87.6 Headache R51 Headache chronicity pattern: acute headache Headache type: unspecified Intractability: intractable
[2020-05-24] MEDS: potassium chloride ER 10 mEq Tablet 40 MEQ PO (17:08)
[2020-05-24 20:00] VITALS: BP 125/71; PULSE 83; RESP 19; TEMP 36.7; O2SAT 94
[2020-05-24 20:24] LABS: Urine Appearance Hazy (CLEAR); Urine Color Yellow (Yellow)
[2020-05-24 20:25] LABS: Add Urine Microscopic? YES; Bilirubin Urine 1+ (NEGATIVE); Blood Urine Neg (Negative); Glucose Urine UA Norm (Normal); Ketones Urine Negative (Negative); Leukocyte Esterase Urine Negative (Negative); Nitrate Urine Negative (Negative); Protein Urine Neg (Negative); Sulfosalicylic Acid Urine Negative (Negative); Urobilinogen Urine Norm (Negative); pH Urine 5 (5-7)
[2020-05-24 20:40] LABS: Add Urine Culture? No; Bacteria Urine 2+; Hyaline Casts Urine 25-40
[2020-05-24] MEDS: enoxaparin 40 mg/0.4 mL Syringe SUBCUT (21:27)
--- NOTE | 2020-05-24 21:35 | MR_ITS ---
WS: [id number] MRI BRAIN WITHOUT CONTRAST HISTORY: Persistent vision loss COMPARISON: 05/23/2020 TECHNIQUE: Diffusion imaging, multiplanar T1, T2 and FLAIR imaging obtained. Diffusion-weighted sequences normal. There are multiple focal areas of diffusion-weighted abnormaliti es involving the posterior circulation bilaterally. Cortical and subcortical T2 and FLAIR signal hype rintensities and diffusion-weighted abnormalities. There are more subtle predominantly FLAIR signal h yperintensities in the frontal lobes bilaterally. No significant volume loss. Ventricles and extra-axial spaces are normal. No inferior displacement of cerebellar tonsils. The sella turcica and pituitary gland are unremarkabl e. Posterior fossa is also unremarkable. Dural venous sinuses and [place] demonstrate no abnormality on this unenhanced studies. Paranasal sinuses: Moderate mucoperiosteal thickening RIGHT maxillary sinus. Mastoid air cells: Normal. Calvarium and scalp: Intact. Notified Dr. Osorio at 05/24/2020 1:20 PM. MR/MR head wo con* [id number] IMPRESSION: 1. Diffusion and FLAIR signal abnormalities as described above. Signal abnorma lities predominantly within the parieto-occipital lobes bilaterally and to a le sser extent posterior frontal lobes. Favor posterior reversible encephalopathy syndrome (PRES). 2. No hemorrhage.
[2020-05-25] VITALS: BP 111/67; PULSE 77; RESP 18; TEMP 36.7; O2SAT 96
[2020-05-25 04:00] VITALS: BP 92/50; PULSE 73; RESP 18; TEMP 36.4; O2SAT 93
[2020-05-25 04:25] LABS: Basophils # 0.1 10^3/uL (0.0-0.1); Basophils % 1.2 %; Eosinophils # 0.1 10^3/uL (0.0-0.8); Eosinophils % 1.5 %; Hematocrit 44.2 % (37.0-47.0); Hemoglobin 14.8 g/dL (11.5-15.3); Lymphocytes % 34.4 %; Mean Corpuscular HGB Conc 33.5 g/dL (30.0-36.0); Mean Corpuscular Hemoglobin 30.5 pg (28.0-34.0); Mean Corpuscular Volume 91.1 fL (81-99); Mean Platelet Volume 10.2 fL (7.4-10.4); Monocytes # 0.7 10^3/uL (0.2-0.9); Monocytes % 7.6 %; Neutrophils # 4.86 10^3/uL (1.8-7.7); Neutrophils % 55.1 %; Nucleated Red Blood Cells % 0 %; Platelet Count 247 10^3/cmm (130-400); Red Blood Count 4.85 10^6/uL (4.1-5.3); Red Cell Distribution Width 12.8 % (12.1-15.1); White Blood Count 8.8 10^3/uL (4.0-10.0)
[2020-05-25 04:36] LABS: Potassium 3.2 mmol/L (3.5-5.1)
[2020-05-25 07:29] VITALS: BP 101/66; PULSE 80; RESP 14; TEMP 36.2; O2SAT 93
[2020-05-25] MEDS: atorvastatin 40 mg Tablet 80 MG PO (07:47)
[2020-05-25] MEDS: lisinopril 10 mg Tablet PO (07:47)
[2020-05-25] MEDS: clopidogrel 75 mg Tablet PO (07:47)
[2020-05-25] MEDS: aspirin 81 mg EC Tablet PO (07:47)
[2020-05-25 11:22] VITALS: BP 117/74; PULSE 72; RESP 18; TEMP 36.8; O2SAT 96
--- NOTE | 2020-05-25 12:27 | P.DS_ITS ---
Discharge Providers Date of Admission: 05/23/20 20:32 Date of Discharge: May 25, 2020 Attending Provider at Admission: Lupe Marti MD Attending Provider at Discharge: Farida Osorio MD Primary Care Provider: None Diagnoses at Discharge Discharge Diagnosis (1) Hypertension: Status: Acute Problem details: -No prior reported history of hypertension, presented with hypertensive urgency, symptomatic with noted headache, blurry vision -Blood pressure has improved with addition of antihypertensives -Continue to monitor blood pressure closely; stable with addition of Lisinopril -Noted to have signal abnormalities predominantly within the parieto-occipital lobes bilaterally and to a lesser extent to the posterior frontal lobes favoring posterior reversible encephalopathy syndrome. This clinically fits the picture of noted hypertensive urgency Qualifiers: Hypertension type: essential hypertension Qualified Code(s): I10 - Essential (primary) hypertension (2) PRES (posterior reversible encephalopathy syndrome): Status: Acute Problem details: -as noted above (3) Hypokalemia: Status: Acute Problem details: -K replacement as needed (4) Headache: Status: Acute Problem details: -Likely secondary to symptomatic hypertensive urgency as noted above -Pain control, antiemetics as needed -Noted imaging findings including CT head showing small focus of parafalcine hypoattenuation in the posterior left parietal lobe with focal atrophic changes and MRI showing findings consistent with PRES -CTA head and neck was unremarkable for any significant stenosis or occlusion -No focal neurological deficits; initial NIH score of [address] Amaral -Urine drug screen negative -UA showing some hematuria and bacteria Qualifiers: Headache chronicity pattern: acute headache Headache type: unspecified Intractability: intractable Qualified Code(s): R51 - Headache Other Information Additional DC diagnoses/information: -Chronic smoker: Smokes half a pack a day -Dyslipidemia per lipid panel, continue statin -Polycythemia likely secondary to dehydration, improved -Leukocytosis which I suspect is reactive, resolved without treatment -Obesity: BMI-30 kg/m2 Reason for Visit Reason for Visit: HEADACHE 48523 G43.109 Hospital Course Hospital Course: Patient was admitted to the medical surgical floor and placed on telemetry monitoring. Due to symptoms of headache and noted abnormalities on CT head MRI was done with noted findings consistent with PRES which correlates with her clinical presentation of hypertensive urgency. With introduction of hypertensive agents her blood pressure has been well controlled and she will be continued on lisinopril. She has been persistently hypokalemic with replacement given as needed. Renal function has been stable, heart rate controlled and she has been maintained on room air. She was initially noted to have leukocytosis with no clinical suspicion for infection based on work-up as noted above and this has resolved without treatment. Blurry vision has persisted which he attributes to not having her glasses. Recommended to follow-up with ophthalmology for further evaluation of vision. She is advised to continue to seek medical attention immediately should symptoms recur. She does not have a primary care provider currently so we will set this up for her and arrange an appointment on discharge. Discharge Summary: -Patient to follow-up with primary care provider within 1 week. Appointment arranged with Leann Donahue NP. Physical Exam Const: COMMON NORMALS: no acute distress and patient oriented x3 GENERAL APPEARANCE: cooperative and comfortable ORIENTATION/CONSCIOUSNESS: Yes awake HENMT: COMMON NORMALS: normocephalic, atraumatic, hearing grossly normal bilaterally and moist oral mucous membranes HEAD & SCALP: normocephalic and atraumatic TEETH & GINGIVA: Yes edentulous Eye: COMMON NORMALS: Equal, round and reactive pupils present, EOMs intact bilaterally and conjunctivae normal CONJUNCTIVA: Yes conjunctivae normal PUPIL: Yes Equal, round and reactive pupils present Neck/C-Spine: COMMON NORMALS: full ROM GENERAL: Yes normal visual inspection and Yes trachea midline Resp: COMMON NORMALS: normal respiratory effort, No retractions, No use of accessory muscles and clear to auscultation bilaterally EFFORT & INSPECTION: Yes able to speak in complete sentences, Yes symmetric chest movement and No tachypneic AUSCULTATION: clear to auscultation bilaterally Cardio: COMMON NORMALS: regular rate, regular rhythm, S1 normal heart sound present, S2 normal heart sound present and No murmurs present (Cardio) RATE: regular rate RHYTHM: regular rhythm HEART SOUNDS: S1 normal heart sound present and S2 normal heart sound present GI: COMMON NORMALS: Normal to inspection, nondistended, normoactive bowel sounds present, Soft to palpation and non-tender PALPATION: Yes Soft to palpation Extremity: COMMON NORMALS: normal to inspection, full ROM and no clubbing, cyanosis or edema; negative for no pedal edema Neuro: COMMON NORMALS: patient oriented x3, moves all extremities, no focal motor deficits, no sensory deficits noted and gait normal Psych: COMMON NORMALS: mental status grossly normal, Normal thought process present, cooperative, normal affect and speech normal SPEECH: Yes normal speech THOUGHT PROCESS: Normal thought process present Skin: COMMON NORMALS: no rashes or lesions noted, no jaundice, no petechiae and no mottling GENERAL SKIN EXAM: no rashes or lesions noted Discharge Data Data Completed and Pending: Completed Studies During Hospitalization Category Date Time Status CT angio headneck * [id number] Stat Cat Scan 05/23/20 17:[address] head wo con* [id number] Stat Cat Scan 05/23/20 17:12 Completed XR chest 1V lydia ble [id number] Stat Exams 05/23/20 17:11 Completed MR head wo con* [id number] Routine MRI 05/24/20 21:35 Completed Pending at discharge Category Date Time Status Aldosterone Routi ne Lab 05/23/20 17:20 Received Plasma Renin Acti vity LC/MS/MS Rout ine Lab 05/23/20 17:20 Received Urine Culture Sta t Lab 05/23/20 20:20 Results MR head wo con* [id number] Routine MRI 05/24/20 10:15 Unverified Labs from last 24 hours 05/25/20 05/25/20 05/24/20 04:02 04:02 20:00 WBC 8.8 RBC 4.85 Hgb 14.8 Hct 44.2 MCV 91.1 MCH 30.5 MCHC 33.5 RDW 12.8 Plt Count 247 MPV 10.2 Neut % (Auto) 55.1 Lymph % (Auto) 34.4 [place] % (Auto) 7.6 Eos % (Auto) 1.5 Baso % (Auto) 1.2 Neut # (Auto) 4.86 Lymph # (Auto) 3.0 [place] # (Auto) 0.7 Eos # (Auto) 0.1 Baso # (Auto) 0.1 Nucleated RBC % (a uto) 0 Nucleated RBCs # 0.0 Potassium 3.2 L Urine Color Yellow Urine Appearance Hazy A Urine pH 5 Ur Specific Gravit y 1.020 Urine Protein Neg Urine Glucose (UA) Norm Urine Ketones Negative Urine Blood Neg Urine Nitrate Negative Urine Bilirubin 1+ H Prot Sulfosalicyli c Acd Negative Urine Urobilinogen Norm Ur Leukocyte Stacey ase Negative Urine RBC None Urine WBC None Ur Squamous Epith Cells 5-10 H Amorphous Sediment Not Reportable Urine Bacteria 2+ H Hyaline Casts 25-40 H Vitals: Last Vital Signs Temp 98.2 F 05/25/20 11:22 Pulse 72 05/25/20 11:22 Resp 18 05/25/20 11:22 BP 117/74 05/25/20 11:22 Pulse Ox 96 05/25/20 11:22 Discharge Plan Discharge Patient Disposition: Home, Self-Care Condition: Stable Prescriptions: New atorvastatin 40 mg Tablet 80 mg PO DAILY 30 Days Qty: 60 RF: 0 clopidogrel 75 mg Tablet 75 mg PO DAILY Qty: 30 RF: 0 aspirin 81 mg Tablet,Delayed Release (Dr/Ec) 81 mg PO DAILY 30 Days Qty: 30 RF: 0 lisinopril 10 mg Tablet 10 mg PO DAILY 30 Days Qty: 30 RF: 0 potassium chloride 20 mEq tablet extended release 20 meq PO DAILY Qty: 30 RF: 0 Continued ibuprofen 200 mg Tablet 400 mg PO PRN RF: 0 Golo Caps 4 cap PO DAILY RF: 0 Discharge Orders: Discharge Order (Routine); Ordered 05/25/20 Ordered By: Farida Osorio Referrals: Leann Donahue ARNP [Nurse Practitioner] - 06/01/20 10:30 am Discharge Diet: Cardiac Discharge Activity: Increase activity as tolerated Patient Instructions: Lisinopril (By mouth), Potassium Chloride (By mouth), Aspirin (By mouth), Atorvastatin (By mouth), Clopidogrel (By mouth), Headache, Migraine Headache (DC), Hypokalemia (DC) Discharge Date/Time: 05/25/20 14:00 Discharge Attestations Time Spent in Discharge Care*: greater than 30 min Specific Discharge Activities: Specific discharge activities: educating patient, discussing with shelter case manager/social workers/dc planners, documenting/other paperwork and evaluating patient/reviewing data Status at Discharge: Cognitive status at discharge: cognitively intact , Behavioral status at discharge: cooperative and independent in ADL's , Functional status at discharge: independent ambulation Overall status at discharge: patient is progressing back to baseline Quality Metrics Clinical Quality Measures During this hospital stay, did patient experience: None Coding Level of Care Code Acute [employer] for Zenaida Fwd Exam Comprehensive Diagnoses Hypertension I10 Hypertension type: essential hypertension PRES (posterior reversible encephalopathy syndrome) I67.83 Hypokalemia E87.6 Headache R51 Headache chronicity pattern: acute headache Headache type: unspecified Intractability: intractable
[2020-05-25 13:29] VITALS: BP 117/74; PULSE 72; RESP 18; TEMP 36.8; O2SAT 96
[2020-05-25] MEDS: potassium chloride ER 10 mEq Tablet 40 MEQ PO (13:30)
--- NOTE | 2020-05-27 16:22 | PC.RESP ---
SMOKING CESSATION INFORMATION SENT TO PATIENT.
[2020-05-28 00:30] LABS: Plasma Renin Activity LC/MS/MS 0.38 ng/mL/h (0.25-5.82)
== END 2020-05-25 14:00 | disposition home or self-care (01) ==
LOC: ER 19:38 → MEDSURG 21:11
PROVIDERS: Emergency Medicine; Family Medicine; Admitting Provider Internal Medicine; Visit Provider Family Medicine
DX: I10 Essential (primary) hypertension (principal); H53.133 Sudden visual loss, bilateral; G43.109 Migraine with aura, not intractable, without status migrainosus; E87.6 Hypokalemia; D75.1 Secondary polycythemia; R31.9 Hematuria, unspecified; E78.6 Lipoprotein deficiency; I67.83 Posterior reversible encephalopathy syndrome; F17.210 Nicotine dependence, cigarettes, uncomplicated; E78.5 Hyperlipidemia, unspecified; E66.9 Obesity, unspecified; Z68.30 Body mass index [BMI] 30.0-30.9, adult
CPT/HCPCS: 12345; 36415; 36416; 70450; 70496; 70498; 70551; 71045; 80048; 80053; 80061; 80306; 81001; 81003; 82088; 82962; 83036; 83735; 84132; 84244; 85025; 85610; 85651; 85730; 86140; 87086; 93005; 96372; 96375; 99284; G0378; J0360; J1200; J1650; J2765; Q9967

== ENCOUNTER 2020-06-24 13:30 | Outpatient (CLI) | payer SELFPAY ==
--- NOTE | 2020-06-24 13:36 | USCV_ITS ---
Kelli Irving Age: 59 Gender: F : 1960 Exam Date: 06/24/2020 14:12 Ordering Phys: Leann Donahue Technologist: Corry Broderick [place] [facility] [place]: MURMUR BP: 139 / 62 HR: 79 Rhythm: Sinus Technical Quality: Adequate MEASUREMENTS (Male / Female) Normal Values 2D ECHO LV Diastolic Diameter PLAX 4.1 cm 4.2 - 5.9 / 3.9 - 5.3 cm LV Systolic Diameter PLAX 2.5 cm LV Chamber Size 3.6 cm IVS Diastolic Thickness 0.9 cm 0.6 - 1.0 / 0.6 - 0.9 cm IVS Systolic Thickness 1.3 cm LVPW Diastolic Thickness 0.9 cm 0.6 - 1.0 / 0.6 - 0.9 cm LVPW Systolic Thickness 1.1 cm RV Chamber Size 2.4 cm LVOT Diameter 2.1 cm LV Ejection Fraction 2D Teich 70.3 % LV Ejection Fraction MOD 2C 62.5 % LV Ejection Fraction 2C AL 62.3 % LA Diameter 3.4 cm LA Width 1.8 cm LA Height 3.7 cm RA Width 2.2 cm RA Height 3.2 cm Aorta at Sinotubular Diameter 2.4 cm M-MODE LV Diastolic Diameter MM 4.4 cm 4.2 - 5.9 / 3.9 - 5.3 cm LV Systolic Diameter MM 2.9 cm LV Ejection Fraction MM Teich 62.2 % IVS Diastolic Thickness MM 0.6 cm 0.6 - 1.0 / 0.6 - 0.9 cm IVS Systolic Thickness MM 1.3 cm LVPW Diastolic Thickness MM 1.2 cm 0.6 - 1.0 / 0.6 - 0.9 cm LVPW Systolic Thickness MM 1.2 cm RV Diastolic Diameter MM 0.9 cm Aortic Annulus Diameter 2.7 cm LA Ao Ratio MM 1.3 MV E Point Septal Separation 0.2 cm DOPPLER AV Peak Velocity 149.0 cm/s LVOT Peak Velocity 87.0 cm/s AV Area Cont Eq vti 2.6 cm squared AV Area Cont Eq pk 1.9 cm squared MV Area PHT 3.3 cm squared Mitral E to A Ratio 0.7 MV E' Velocity 9.0 cm/s Mitral E to MV E' Ratio 7.8 Mitral E to LV E' Lateral Ratio 7.5 Mitral E to LV E' Septal Ratio 8.2 TR Peak Velocity 231.5 cm/s TR Peak Gradient 21.4 mmHg TR Mean Velocity 168.5 cm/s TR Mean Gradient 13.0 mmHg TR Velocity Time Integral 56.9 cm TV Peak E Velocity 70.0 cm/s Right Atrial Pressure 3.0 mmHg Pulmonary Artery Systolic Pressu 24.4 mmHg PV Peak Velocity 94.0 cm/s RV Acceleration Time 0.1 s RV Ejection Time 0.3 s RV AcT/ET 0.4 FINDINGS Left Ventricle Normal left ventricular size and systolic function. No regional wall motion abnormalities. Mild LVH is noted. LVEF is 55 to 60%. Grade 1 diastolic dysfunction is noted. Right Ventricle The right ventricle is normal in size and function. Right Atrium The right atrium is normal in size. Left Atrium The left atrium is normal in size. Mitral Valve Structurally normal mitral valve without significant stenosis or prolapse. There is no mitral regurgitation. Aortic Valve Structurally normal aortic valve without significant sclerosis or stenosis. There is mild aortic regurgitation. Tricuspid Valve Structurally normal tricuspid valve without significant stenosis. There is trace TR noted. RVSP is normal. Pulmonic Valve Structurally normal pulmonic valve without significant stenosis. There is no pulmonic regurgitation. Pericardium Normal pericardium without effusion. Aorta Normal ascending aorta dimension. CONCLUSIONS Mild LV systolic function with EF 55 to 60%. Grade 1 diastolic dysfunction There is trace TR and mild aortic regurgitation noted. Andrew Hardin MD (Electronically Signed) Final Date: 24 June 2020 17:12 S
== END 2020-06-24 13:31 | disposition home or self-care (01) ==
LOC: RAD 13:32
PROVIDERS: Visit Provider Nurse Practitioner Family
DX: R01.1 Cardiac murmur, unspecified (principal); I10 Essential (primary) hypertension; I51.81 Takotsubo syndrome
CPT/HCPCS: 93306

== ENCOUNTER 2020-08-25 09:02 | Outpatient (CLI) | payer SELFPAY ==
--- NOTE | 2020-08-25 09:30 | USCV_ITS ---
Kelli Irving Age: 59 Gender: F : 1960 Exam Date: 08/25/2020 09:34 Ordering Phys: Paul Nova MD ([email or web address]) Technologist: Damaris Sheriff Exam Location: [facility] [place] Indication: AR BP: / HR: 67 Rhythm: Sinus Technical Quality: Good MEASUREMENTS (Male / Female) Normal Values 2D ECHO LV Diastolic Diameter PLAX 3.8 cm 4.2 - 5.9 / 3.9 - 5.3 cm LV Systolic Diameter PLAX 2.7 cm IVS Diastolic Thickness 1.2 cm 0.6 - 1.0 / 0.6 - 0.9 cm IVS Systolic Thickness 1.3 cm LVPW Diastolic Thickness 0.8 cm 0.6 - 1.0 / 0.6 - 0.9 cm LVPW Systolic Thickness 1.6 cm LVOT Diameter 1.9 cm LV Ejection Fraction 2D Teich 53.9 % LV Ejection Fraction MOD 2C 75.3 % LV Ejection Fraction 2C AL 76.3 % LA Diameter 3.3 cm LA Width 3.1 cm LA Height 4.2 cm RA Width 2.4 cm RA Height 3.5 cm M-MODE LV Diastolic Diameter MM 4.6 cm 4.2 - 5.9 / 3.9 - 5.3 cm LV Systolic Diameter MM 2.6 cm LV Ejection Fraction MM Teich 74.8 % IVS Diastolic Thickness MM 0.7 cm 0.6 - 1.0 / 0.6 - 0.9 cm IVS Systolic Thickness MM 1.0 cm LVPW Diastolic Thickness MM 0.8 cm 0.6 - 1.0 / 0.6 - 0.9 cm LVPW Systolic Thickness MM 1.6 cm Aortic Annulus Diameter 2.8 cm LA Ao Ratio MM 1.2 MV E Point Septal Separation 0.1 cm DOPPLER AV Peak Velocity 179.0 cm/s LVOT Peak Velocity 111.0 cm/s AV Area Cont Eq vti 2.3 cm squared AV Area Cont Eq pk 1.8 cm squared MV Peak Velocity 123.0 cm/s MV Area PHT 5.6 cm squared Mitral E to A Ratio 0.8 MV E' Velocity 49.0 cm/s Mitral E to MV E' Ratio 8.9 Mitral E to LV E' Lateral Ratio 13.2 Mitral E to LV E' Septal Ratio 6.8 TR Peak Velocity 198.0 cm/s TR Peak Gradient 15.7 mmHg Right Atrial Pressure 3.0 mmHg Pulmonary Artery Systolic Pressu 18.7 mmHg PV Peak Velocity 101.3 cm/s RV Acceleration Time 0.1 s FINDINGS Left Ventricle Normal left ventricular size and systolic function, EF 77 %. No regional wall motion abnormalities. Grade I/IV diastolic dysfunction (abnormal relaxation filling pattern), normal to mildly elevated filling pressures. Right Ventricle The right ventricle is normal in size and function. Right Atrium The right atrium is normal in size. Left Atrium Left atrium upper limit of normal size Mitral Valve Thickened mitral valve. Trace mitral valve regurgitation. Aortic Valve Thickened aortic valve. Mild aortic valve regurgitation. Tricuspid Valve Trace to mild tricuspid valve regurgitation. Pulmonic Valve Structurally normal pulmonic valve without significant stenosis. There is no pulmonic regurgitation. Pericardium Normal pericardium without effusion. Aorta Normal ascending aorta dimension. CONCLUSIONS Normal left ventricular size and systolic function, EF 77 %. No regional wall motion abnormalities. Grade I/IV diastolic dysfunction (abnormal relaxation filling pattern), normal to mildly elevated filling pressures. Thickened aortic and mitral valves. Mild aortic valve regurgitation. Trace to mild tricuspid valve regurgitation. Trace mitral valve regurgitation. There is no pericardial effusion. There are no intracardiac masses. Compared to the previous study from 06/24/2020, there may not be a significant change Dr Paul Nova MD [facility] (Electronically Signed) Final Date: 25 August 2020 17:43 S
== END 2020-08-25 09:03 | disposition home or self-care (01) ==
LOC: US 09:04
PROVIDERS: PCP Nurse Practitioner Family; Visit Provider Internal Medicine Cardiovascular Disease
DX: R07.89 Other chest pain (principal); I08.0 Rheumatic disorders of both mitral and aortic valves
CPT/HCPCS: 93306